=== PATIENT | male | born 1940 | race Caucasian/White ===

== ENCOUNTER 2019-11-19 07:32 | Emergency (ER) | payer MEDICARE ==
[2019-11-19 08:04] LABS: BASOPHILS % (AUTO) 0.8 % (0.0-5.0); EOSINOPHILS % (AUTO) 2.2 % (0.0-8.0); HEMATOCRIT 41.9 % (42-54); LYMPHOCYTES % (AUTO) 25.6 % (21.0-51.0); MEAN CORPUSCULAR HEMOGLOBIN 30.9 pg (27.0-33.0); MEAN CORPUSCULAR HGB CONC 32.7 g/dL (32.0-36.0); MEAN CORPUSCULAR VOLUME 94.4 fL (79-99); MONOCYTES % (AUTO) 13.6 % (3.0-13.0); NEUTROPHILS % (AUTO) 57.4 % (40.0-77.0); PLATELET COUNT (AUTO) 165 K/uL (130-400); RED BLOOD CELL COUNT(AUTO) 4.44 MIL/uL (4.50-6.20); RED CELL DISTRIBUTION WIDTH 13.4 % (11.0-15.5); WHITE BLOOD COUNT (AUTO) 7.7 K/uL (4.8-10.8)
[2019-11-19 08:27] LABS: POTASSIUM 4.5 mmol/L (3.5-5.1)
[2019-11-19] MEDS ORDERED: CEFTRIAXONE SODIUM 1 GM ONE (08:29)
[2019-11-19 08:30] LABS: ALBUMIN 3.1 g/dL (3.5-5.0); BILIRUBIN,TOTAL 0.9 mg/dL (0.2-1.0); TOTAL PROTEIN, SERUM 7.3 g/dL (6.0-8.3)
[2019-11-19] MEDS ORDERED: SODIUM CHLORIDE 0.9% 50 ML IV ONE (08:30)
[2019-11-19] MEDS ORDERED: SODIUM CHLORIDE 0.9% 500ML 500 ML IV ONE (08:34)
[2019-11-19] MEDS ORDERED: CLINDAMYCIN HCL 150 MG CAP ONE (08:35)
== END 2019-11-19 09:41 | disposition home or self-care (01) ==
LOC: EDH 07:32
DX: L03.116 Cellulitis of left lower limb (principal); I10 Essential (primary) hypertension
CPT/HCPCS: 36415; 80053; 83605; 85025; 96374; 99283; J0696; J7040